=== PATIENT | female | born 1960 | race Caucasian/White ===

== ENCOUNTER → 2020-01-20 10:54 | Outpatient (CLI) | payer MEDICAID | END | disposition home or self-care (01) | LOC: D.MRI 10:54 | PROVIDERS: ATTEND Orthopaedic Surgery | DX: M54.12 Radiculopathy, cervical region (principal) ==

== ENCOUNTER → 2020-12-02 14:48 | Outpatient (CLI) | payer BC ==
[2020-09-03 09:58] VITALS: BMI 27.1
[~2020-12-02 14:48] MED LIST: HYDROCODON-ACE1 EA10 PO; LISINOPRIL10 MG PO; MEDROL DOSE PACK4 MG PO; NEURONTIN800 MG PO; NORTRIPTYLINE PO; PROZAC10 MG PO; ULTRAM50 MG PO
== END | disposition home or self-care (01) ==
LOC: D.MRI 14:48
PROVIDERS: ATTEND Orthopaedic Surgery
DX: M75.101 Unspecified rotator cuff tear or rupture of right shoulder, not specified as traumatic (principal)